=== PATIENT | female | born 1980 | race African-American/Black ===

== ENCOUNTER 2017-08-14 09:59 | Inpatient (IN) | payer OTHER ==
[2017-08-14 10:18] VITALS: BMI 23.9
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
[2017-08-14] MEDS ORDERED: IBUPROFEN 400 MG TABLET (FP) PO PRN (12:35)
[2017-08-14] MEDS ORDERED: chlordiazePOXIDE HCL 25 MG CAPSULE PO PRN (12:35)
[2017-08-14] MEDS ORDERED: MAGNESIUM HYDROX 2400MG/30ML ORAL SUSPENSION 30 ML CUP PO PRN (12:35)
[2017-08-14] MEDS ORDERED: MENTHOL/PHENOL 1 EACH UD MM PRN (12:35)
[2017-08-14] MEDS ORDERED: LOPERAMIDE HCL 2 MG CAPSULE PO PRN (12:35)
[2017-08-14] MEDS ORDERED: ACETAMINOPHEN 325 MG TABLET (FP) PO PRN (12:35)
[2017-08-14] MEDS ORDERED: guaiFENesin/D-METHORPHAN HB 10 ML UNIT-DOSE CUPS PO PRN (12:35)
[2017-08-14] MEDS ORDERED: MAGNESIUM CITRATE 300 ML BOTTLE PO PRN (12:35)
[2017-08-14] MEDS ORDERED: P-EPHED 60MG/TRIPROLIDI 2.5MG TABLET PO PRN (12:35)
[2017-08-14] MEDS ORDERED: MAG HYDROX/AL HYDROX/SIMETH 30 ML UNIT-DOSE CUP PO PRN (12:35)
[2017-08-14] MEDS ORDERED: hydrOXYzine PAMOATE 50 MG CAPSULE (FP) PO PRN (12:42)
[2017-08-14] MEDS ORDERED: chlordiazePOXIDE HCL 25 MG CAPSULE PO ONE (13:30)
[2017-08-14] MEDS: METHIMAZOLE 10 MG TABLET (FP) PO SCH ×2 (15:06→22:29)
--- NOTE | 2017-08-14 15:38 | CONSULT ---
[facility] Psychiatric Consult - Data Date of interview: 08/14/17 Admission source: [facility] Identifying data: This is 36 years old female with no psychiatric hospitalization history, intoxicatewd with: Alcohol, Cocaine anmd Nicotine Substance Abuse History: - Smoking Cessation. Smoking history: Current every day smoker. Have you smoked in the past 12 months: Yes. Aproximately how many cigarettes per day: 30. Hx Chewing Tobacco Use: No. Initiated information on smoking cessation: Yes. 'Breaking Loose' booklet given: 08/14/17. - Substance & Tx. History. Hx Alcohol Use: Yes. Hx Substance Use: Yes. Substance Use Type : Alcohol, Cocaine. Hx Substance Use Treatment: Yes (last detox at [address] [place] [address] pt signed out.). - Substances Abused. Alcohol. Route: Oral. Frequency: Daily. Amount used: 1 PINT VODKA AND GIN. Age of first use: 12. Date of Last Use: 08/14/17. Cocaine. Route: Inhalation. Frequency: Daily. Amount used : 2 BAGS. Age of first use: 19. Date of Last Use: 08/14/17 Medical History: HTN, HYPERTHYROIDISM HISTORY Psychiatric History: Patient reports history of anxiety and insonmnia, reports taking priopr to admission: Seroquel 100mg po qhs Physical/Sexual Abuse/Trauma History: Denies Additional Comment: Seroquel 100mg po qhs Mental Status Exam - Mental Status Exam Alert and Oriented to: Person Cognitive Function: Fair Patient Appearance: Unkempt Mood: Anxious Affect: Labile Patient Behavior: Impulsive Speech Pattern: Appropriate Voice Loudness: Mildly Loud Thought Process: Goal Oriented Thought Disorder: Being Controlled Hallucinations: Denies Suicidal Ideation: Denies Homicidal Ideation: Denies Insight/Judgement: Fair Sleep: Difficulty falling asleep Appetite: Fair Muscle strength/Tone: Mild Hypertonicity Gait/Station: Normal Additional Comments: Seroquel 100mg po qhs Psychiatric Findings - Problem List ([place] 1, 2,3) (1) Alcohol dependence with uncomplicated withdrawal Current Visit: Yes Status: Chronic (2) Cocaine dependence, uncomplicated Current Visit: Yes Status: Chronic (3) Drug-induced mood disorder Current Visit: No Status: Suspected - Initial Treatment Plan Initial Treatment Plan: Seroquel 100mg po qhs
[2017-08-14 17:20] LABS: URINE APPEARANCE CLEAR; URINE BILIRUBIN NEGATIVE (NEGATIVE); URINE BLOOD NEGATIVE (NEGATIVE); URINE COLOR STRAW; URINE GLUCOSE (UA) NEGATIVE (NEGATIVE); URINE KETONE NEGATIVE (NEGATIVE); URINE LEUK ESTERASE NEGATIVE (NEGATIVE); URINE NITRITE NEGATIVE (NEGATIVE); URINE PROTEIN NEGATIVE (NEGATIVE); URINE UROBILINOGEN NEGATIVE mg/dL (0.2-1.0)
[2017-08-14] MEDS: chlordiazePOXIDE HCL 25 MG CAPSULE PO SCH ×2 (17:39→22:29)
[2017-08-14] MEDS: QUEtiapine FUMARATE 100 MG TABLET (FP) PO SCH (22:29)
[2017-08-14] MEDS: THIAMINE HCL 100 MG TABLET (FP) PO SCH (22:29)
[2017-08-15] MEDS: chlordiazePOXIDE HCL 25 MG CAPSULE PO SCH ×4 (05:31→22:17)
[2017-08-15] MEDS: METHIMAZOLE 10 MG TABLET (FP) PO SCH ×3 (05:59→22:18)
[2017-08-15 10:21] LABS: CHLORIDE 103 mmol/L (98-107); POTASSIUM 3.6 mmol/L (3.5-5.1); SODIUM 139 mmol/L (136-145)
[2017-08-15 10:22] LABS: HEMOGLOBIN 10.4 GM/dL (10.7-15.3); MCH 22.1 pg (25.7-33.7); MCHC 30.6 g/dl (32.0-36.0); MEAN CELL VOLUME 72.3 fl (80-96); MEAN PLT VOLUME 8.7 fl (7.5-11.1); PLATELET COUNT 241 K/MM3 (134-434); RBC 4.71 M/mm3 (3.60-5.2); RDW 15.6 % (11.6-15.6); WHITE BLOOD COUNT 5.9 K/mm3 (4.0-10.0)
[2017-08-15 10:33] LABS: ALBUMIN 3.5 g/dl (3.4-5.0); ALK PHOS 211 U/L (45-117); ANION GAP 10 (8-16); BILIRUBIN,TOTAL 0.7 mg/dL (0.2-1.0); BLOOD UREA NITROGEN 9 mg/dL (7-18); CALCIUM 9.7 mg/dL (8.5-10.1); CO2 26 mmol/L (21-32); CREATININE 0.5 mg/dL (0.55-1.02); GLUCOSE,RANDOM 123 mg/dL (74-106); SGOT/AST 17 U/L (15-37); SGPT/ALT 27 U/L (12-78); TOT PROT 7.2 g/dl (6.4-8.2)
[2017-08-15] MEDS: NICOTINE 21 MG/24 HOURS TOPICAL PATCH TD SCH ×2 (11:04→11:07)
[2017-08-15] MEDS: PRENATAL VITAMINS W/ FOLIC ACID TABLET (FP) PO SCH (11:04)
--- NOTE | 2017-08-15 11:21 | PN ---
S CIWA - CIWA Score Nausea/Vomitin-Mild Nausea/No Vomiting Muscle Tremors: 4-Moderate,w/Arms Extend Anxiety: 3 Agitation: 3 Paroxysmal Sweats: 3 Orientation: 0-Oriented Tacttile Disturbances: 0-None Auditory Disturbances: 0-None Visual Disturbances: 0-None Headache: 1-Very Mild CIWA-Ar Total Score: 15 S Progress Note (SOAP) Subjective: agitation restless sweats interrupted sleep tired body aches Objective: 08/15/17 11:20 Vital Signs Temperature 97.7 F 08/15/17 10:00 Pulse Rate 126 H 08/15/17 10:00 Respiratory Rate 20 08/15/17 10:00 Blood Pressure 130/71 08/15/17 10:00 O2 Sat by Pulse Oximetry (%) Laboratory Tests 08/14/17 08/14/17 08/15/17 13:30 15:00 06:00 WBC 5.9 RBC 4.71 Hgb 10.4 L Hct 34.0 MCV 72.3 L MCH 22.1 L MCHC 30.6 L RDW 15.6 Plt Count 241 MPV 8.7 Sodium Potassium Chloride Carbon Dioxide Anion Gap BUN Creatinine Creat Clearance w eGFR Random Glucose Calcium Total Bilirubin AST ALT Alkaline Phosphatase Total Protein Albumin Urine Color Straw Urine Appearance Clear Urine pH 5.0 Ur Specific [place] 1.005 Urine Protein Negative Urine Glucose (UA) Negative Urine Ketones Negative Urine Blood Negative Urine Nitrite Negative Urine Bilirubin Negative Urine Urobilinogen Negative Ur Leukocyte Esterase Negative HIV 1&2 Antibody Screen Negative HIV P24 Antigen Negative 08/15/17 06:00 WBC RBC Hgb Hct MCV MCH MCHC RDW Plt Count MPV Sodium 139 Potassium 3.6 Chloride 103 Carbon Dioxide 26 Anion Gap 10 BUN 9 Creatinine 0.5 L Creat Clearance w eGFR > 60 Random Glucose 123 H D Calcium 9.7 Total Bilirubin 0.7 AST 17 D ALT 27 Alkaline Phosphatase 211 H Total Protein 7.2 Albumin 3.5 Urine Color Urine Appearance Urine pH Ur Specific [place] Urine Protein Urine Glucose (UA) Urine Ketones Urine Blood Urine Nitrite Urine Bilirubin Urine Urobilinogen Ur Leukocyte Esterase HIV 1&2 Antibody Screen HIV P24 Antigen aaox3 ambulating no acute distress Assessment: 08/15/17 11:21 withdrawal sx Plan: continue detox increase fluids
--- NOTE | 2017-08-15 15:19 | EKG ---
Test Reason : Blood Pressure : / mmHG Vent. Rate : 118 BPM Atrial Rate : 118 BPM P-R Int : 158 ms QRS Dur : 082 ms QT Int : 316 ms P-R-T Axes : 077 052 065 degrees QTc Int : 442 ms SINUS TACHYCARDIA POSSIBLE LEFT ATRIAL ENLARGEMENT LEFT VENTRICULAR HYPERTROPHY ABNORMAL ECG WHEN COMPARED WITH ECG OF 19-JUN-2017 14:51, NO SIGNIFICANT CHANGE WAS FOUND Confirmed by Ifeanyi Sam MD ([id number]) on 08/15/2017 3:19:13 PM Referred By: Confirmed By:Ifeanyi Sam MD
[2017-08-15] MEDS: THIAMINE HCL 100 MG TABLET (FP) PO SCH (22:17)
[2017-08-15] MEDS: QUEtiapine FUMARATE 100 MG TABLET (FP) PO SCH (22:18)
[2017-08-16] MEDS: METHIMAZOLE 10 MG TABLET (FP) PO SCH ×3 (05:55→22:31)
[2017-08-16] MEDS: chlordiazePOXIDE HCL 25 MG CAPSULE PO SCH ×2 (05:55→10:18)
[2017-08-16] MEDS: PRENATAL VITAMINS W/ FOLIC ACID TABLET (FP) PO SCH (10:18)
[2017-08-16] MEDS: NICOTINE 21 MG/24 HOURS TOPICAL PATCH TD SCH (10:18)
--- NOTE | 2017-08-16 10:59 | PN ---
[facility] CIWA - CIWA Score Nausea/Vomitin-Mild Nausea/No Vomiting Muscle Tremors: 3 Anxiety: 4-Mod. Anxious/Guarded Agitation: 3 Paroxysmal Sweats: 2 Orientation: 0-Oriented Tacttile Disturbances: 0-None Auditory Disturbances: 0-None Visual Disturbances: 0-None Headache: 0-None Present CIWA-Ar Total Score: 13 S Progress Note (SOAP) Subjective: anxious agitated problems sleeping sometimes Objective: 08/16/17 10:56 eating, no acute distress, mood guarded, tremulous Last Vital Signs Temp Pulse Resp BP Pulse Ox 98.2 F 96 20 132/74 08/16/17 10:00 08/16/17 10:00 08/16/17 10:00 08/16/17 10:00 Laboratory Last Values WBC 5.9 K/mm3 (4.0-10.0) 08/15/17 06:00 RBC 4.71 M/mm3 (3.60-5.2) 08/15/17 06:00 Hgb 10.4 GM/dL (10.7-15.3) L 08/15/17 06:00 Hct 34.0 % (32.4-45.2) 08/15/17 06:00 MCV 72.3 fl (80-96) L 08/15/17 06:00 MCH 22.1 pg (25.7-33.7) L 08/15/17 06:00 MCHC 30.6 g/dl (32.0-36.0) L 08/15/17 06:00 RDW 15.6 % (11.6-15.6) 08/15/17 06:00 Plt Count 241 K/MM3 (134-434) 08/15/17 06:00 MPV 8.7 fl (7.5-11.1) 08/15/17 06:00 Sodium 139 mmol/L (136-145) 08/15/17 06:00 Potassium 3.6 mmol/L (3.5-5.1) 08/15/17 06:00 Chloride 103 mmol/L (98-107) 08/15/17 06:00 Carbon Dioxide 26 mmol/L (21-32) 08/15/17 06:00 Anion Gap 10 (8-16) 08/15/17 06:00 BUN 9 mg/dL (7-18) 08/15/17 06:00 Creatinine 0.5 mg/dL (0.55-1.02) L 08/15/17 06:00 Creat Clearance w eGFR > 60 (>60) 08/15/17 06:00 Random Glucose 123 mg/dL (74-106) H D 08/15/17 06:00 Calcium 9.7 mg/dL (8.5-10.1) 08/15/17 06:00 Total Bilirubin 0.7 mg/dL (0.2-1.0) 08/15/17 06:00 AST 17 U/L (15-37) D 08/15/17 06:00 ALT 27 U/L (12-78) 08/15/17 06:00 Alkaline Phosphatase 211 U/L (45-117) H 08/15/17 06:00 Total Protein 7.2 g/dl (6.4-8.2) 08/15/17 06:00 Albumin 3.5 g/dl (3.4-5.0) 08/15/17 06:00 Urine Color Straw 08/14/17 15:00 Urine Appearance Clear 08/14/17 15:00 Urine pH 5.0 (5.0-8.0) 08/14/17 15:00 Ur Specific [place] 1.005 (1.001-1.035) 08/14/17 15:00 Urine Protein Negative (NEGATIVE) 08/14/17 15:00 Urine Glucose (UA) Negative (NEGATIVE) 08/14/17 15:00 Urine Ketones Negative (NEGATIVE) 08/14/17 15:00 Urine Blood Negative (NEGATIVE) 08/14/17 15:00 Urine Nitrite Negative (NEGATIVE) 08/14/17 15:00 Urine Bilirubin Negative (NEGATIVE) 08/14/17 15:00 Urine Urobilinogen Negative mg/dL (0.2-1.0) 08/14/17 15:00 Ur Leukocyte Esterase Negative (NEGATIVE) 08/14/17 15:00 RPR Titer Nonreactive (NONREACTIVE) 08/15/17 06:00 HIV 1&2 Antibody Screen Negative 08/14/17 13:30 HIV P24 Antigen Negative 08/14/17 13:30 labs noted Assessment: 08/16/17 10:59 withdrawal sx Plan: continue detox
[2017-08-16] MEDS: chlordiazePOXIDE 5 MG CAPSULE PO SCH ×2 (18:35→22:31)
[2017-08-16] MEDS: QUEtiapine FUMARATE 100 MG TABLET (FP) PO SCH (22:31)
[2017-08-16] MEDS: THIAMINE HCL 100 MG TABLET (FP) PO SCH (22:31)
[2017-08-17] MEDS: METHIMAZOLE 10 MG TABLET (FP) PO SCH ×3 (05:48→22:15)
[2017-08-17] MEDS: chlordiazePOXIDE 5 MG CAPSULE PO SCH ×2 (05:49→11:21)
--- NOTE | 2017-08-17 10:37 | PN ---
BHS Progress Note (SOAP) Subjective: agitation anxiety sweats Objective: 08/17/17 10:36 Vital Signs Temperature 97.7 F 08/17/17 10:16 Pulse Rate 113 H 08/17/17 10:16 Respiratory Rate 18 08/17/17 10:16 Blood Pressure 130/78 08/17/17 10:16 O2 Sat by Pulse Oximetry (%) aaox3 ambulating no acute distress Assessment: 08/17/17 10:37 withdrawal sx Plan: continue detox increase fluids d/c in am
[2017-08-17] MEDS: PRENATAL VITAMINS W/ FOLIC ACID TABLET (FP) PO SCH (11:22)
[2017-08-17] MEDS: NICOTINE 21 MG/24 HOURS TOPICAL PATCH TD SCH (11:23)
[2017-08-17] MEDS: chlordiazePOXIDE HCL 10 MG CAPSULE PO SCH ×2 (18:29→22:16)
[2017-08-17] MEDS: THIAMINE HCL 100 MG TABLET (FP) PO SCH (22:15)
[2017-08-17] MEDS: QUEtiapine FUMARATE 100 MG TABLET (FP) PO SCH (22:16)
[2017-08-18] MEDS: chlordiazePOXIDE HCL 10 MG CAPSULE PO SCH (05:57)
[2017-08-18] MEDS: METHIMAZOLE 10 MG TABLET (FP) PO SCH (05:57)
--- NOTE | 2017-08-18 09:15 | DS ---
[facility] Detox Discharge Summary Admission Date: 08/14/17 Discharge Date: 08/18/17 - History Present History: Alcohol Dependence, Cocaine Dependence Additional Comments: follow up with after care program as arrangement Pertinent Past History: hypertension hyperthyroidism - Physical Exam Results Vital Signs: Vital Signs Temperature 97.2 F L 08/18/17 06:00 Pulse Rate 113 H 08/18/17 06:00 Respiratory Rate 18 08/18/17 06:00 Blood Pressure 114/75 08/18/17 06:00 O2 Sat by Pulse Oximetry (%) Pertinent Admission Physical Exam Findings: withdrawal symptom and finding - Treatment Hospital Course: Detox Protocol Followed, Detoxed Safely, Responded well, Discharged Condition Good, Rehab Referral Accepted ([facility]) Patient has Accepted a Rehab Referral to: [facility] - Medication Discharge Medications: Ambulatory Orders Methimazole [Tapazole -] 10 mg PO Q8H 08/14/17 Quetiapine Fumarate [Seroquel] 100 mg PO HS #30 tablet 08/14/17 - Diagnosis (1) Alcohol dependence with uncomplicated withdrawal Current Visit: Yes Status: Chronic (2) Cocaine dependence, uncomplicated Current Visit: Yes Status: Chronic (3) Hypertension Current Visit: Yes Status: Chronic Qualifiers: Hypertension type: essential hypertension (4) Hyperthyroidism Current Visit: Yes Status: Chronic - AMA Did Patient Leave Against Medical Advice: No
[2017-08-18 10:44] VITALS: BP 130/81; PULSE 124; TEMP 97.9
[2017-08-18] MEDS: NICOTINE 21 MG/24 HOURS TOPICAL PATCH TD SCH (11:14)
[2017-08-18] MEDS: PRENATAL VITAMINS W/ FOLIC ACID TABLET (FP) PO SCH (11:15)
== END 2017-08-18 01:18 | disposition other institution (70) | DRG 774 ==
LOC: YASAS 09:59 → Y6N 12:35
PROVIDERS: ADMIT Internal Medicine; ATTEND Internal Medicine
PROC: HZ2ZZZZ Detoxification Services for Substance Abuse Treatment (ICD-10-PCS; principal; 2017-08-14)
DX: F10.230 Alcohol dependence with withdrawal, uncomplicated (principal); F14.20 Cocaine dependence, uncomplicated; F19.24 Other psychoactive substance dependence with psychoactive substance-induced mood disorder; F32.9 Major depressive disorder, single episode, unspecified; I10 Essential (primary) hypertension; E05.90 Thyrotoxicosis, unspecified without thyrotoxic crisis or storm; Z87.828 Personal history of other (healed) physical injury and trauma; Z59.0 Homelessness
CPT/HCPCS: 36415; 80053; 81003; 85027; 86593; 87389; 93005; 93010

== ENCOUNTER 2018-06-04 08:12 | Inpatient (IN) | payer OTHER ==
[2018-06-04 08:59] VITALS: BMI 24.2
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
[2018-06-04] MEDS ORDERED: guaiFENesin/D-METHORPHAN HB 10 ML UNIT-DOSE CUPS PO PRN (09:35)
[2018-06-04] MEDS ORDERED: hydrOXYzine PAMOATE 50 MG CAPSULE (FP) PO PRN (09:35)
[2018-06-04] MEDS ORDERED: MENTHOL/PHENOL 1 EACH UD MM PRN (09:35)
[2018-06-04] MEDS ORDERED: ACETAMINOPHEN 325 MG TABLET (FP) PO PRN (09:35)
[2018-06-04] MEDS ORDERED: LOPERAMIDE HCL 2 MG CAPSULE PO PRN (09:35)
[2018-06-04] MEDS ORDERED: IBUPROFEN 400 MG TABLET (FP) PO PRN (09:35)
[2018-06-04] MEDS ORDERED: P-EPHED 60MG/TRIPROLIDI 2.5MG TABLET PO PRN (09:35)
[2018-06-04] MEDS ORDERED: MAG HYDROX/AL HYDROX/SIMETH 30 ML UNIT-DOSE CUP PO PRN (09:35)
[2018-06-04] MEDS ORDERED: chlordiazePOXIDE HCL 25 MG CAPSULE PO PRN (09:35)
[2018-06-04] MEDS ORDERED: MAGNESIUM HYDROX 2400MG/30ML ORAL SUSPENSION 30 ML CUP PO PRN (09:35)
[2018-06-04] MEDS ORDERED: MAGNESIUM CITRATE 300 ML BOTTLE PO PRN (09:35)
[2018-06-04] MEDS ORDERED: LEVOTHYROXINE PO SCH (10:00)
[2018-06-04] MEDS: PRENATAL VITAMINS W/ FOLIC ACID TABLET (FP) PO SCH (11:37)
[2018-06-04] MEDS: chlordiazePOXIDE HCL 25 MG CAPSULE PO SCH ×3 (11:37→22:18)
--- NOTE | 2018-06-04 14:37 | CONSULT ---
[facility] Psychiatric Consult - Data Date of interview: 06/04/18 Admission source: [facility] Identifying data: This is a 37 years old female, single mother of two, living with family, unemployed, on PA support, with no psychiatric hospitalization history, with alcohol and cocaine dependence,seeking detox reporting withdrawal symptoms, last detox [facility] on 08/14/17 to 08/18/17, Substance Abuse History: Smoking history: Current every day smoker. Have you smoked in the past 12 months: Yes. Aproximately how many cigarettes per day: 20. Hx Chewing Tobacco Use: No. Initiated information on smoking cessation: Yes. 'Breaking Loose' booklet given: 06/04/18. - Substance & Tx. History. Hx Alcohol Use: Yes. Hx Substance Use: Yes. Substance Use Type: Alcohol, Cocaine. Hx Substance Use Treatment: Yes ([facility] 08/14/17 to 08/18/17). - Substances Abused. Alcohol. Route: Oral. Frequency: Daily. Amount used: 1 PINT [place], 7-8 12OZ CANS OF [place]ER. Age of first use: 14. Date of Last Use: 06/04/18. Cocaine. Route: Inhalation. Frequency: 1-2 times per week. Amount used: $10. Age of first use: 19. Date of Last Use: 05/31/18 Medical History: HTN, HISTORY OF HYPERTHYROIDITIS FOLLOWITH BY THYROIDOECTOMY, CURRENTLY ON SYNTROID DUE TO HYPOTHYROIDITIS, Psychiatric History: Patoent reports history of anxiety and depression, reports history of Bipolar disorder with no pasychiatric hospitalization hbistory. Patient asking for Seroquel 50mg po qhs for insomnia. Physical/Sexual Abuse/Trauma History: Denies Additional Comment: Seroquel 50mg po qhs Mental Status Exam - Mental Status Exam Alert and Oriented to: Person Cognitive Function: Fair Patient Appearance: Well Groomed Mood: Anxious Affect: Mood Congruent Patient Behavior: Cooperative Speech Pattern: Appropriate Voice Loudness: Moderately Soft/Quiet Thought Process: Goal Oriented Thought Disorder: Being Controlled Hallucinations: Denies Suicidal Ideation: Denies Homicidal Ideation: Denies Insight/Judgement: Fair Sleep: Difficulty falling asleep Appetite: Fair Muscle strength/Tone: Normal Gait/Station: Normal Additional Comments: Seroquel 50mg po qhs Psychiatric Findings - Problem List ([place]unday 1, 2,3) (1) Alcohol dependence with uncomplicated intoxication Current Visit: Yes Status: Acute (2) History of thyroidectomy Current Visit: Yes Status: Acute (3) Hypothyroidism Current Visit: Yes Status: Acute (4) Insomnia secondary to depression with anxiety Current Visit: Yes Status: Acute (5) Nicotine dependence Current Visit: Yes Status: Acute (6) Alcohol dependence with uncomplicated withdrawal Current Visit: No Status: Chronic (7) Cocaine dependence, uncomplicated Current Visit: No Status: Chronic (8) Ecstasy type drug dependence Current Visit: No Status: Chronic (9) Hypertension Current Visit: No Status: Chronic Qualifiers: Hypertension type: essential hypertension Qualified Code(s): I10 - Essential (primary) hypertension (10) Drug-induced mood disorder Current Visit: No Status: Suspected - Initial Treatment Plan Initial Treatment Plan: Seroquel 50 mg po qhs
[2018-06-04] MEDS: LEVOTHYROXINE PO SCH (15:04)
[2018-06-04 20:18] LABS: URINE APPEARANCE CLOUDY; URINE BILIRUBIN NEGATIVE (<2.0 mg/dL); URINE COLOR YELLOW; URINE GLUCOSE (UA) NEGATIVE (NEGATIVE); URINE KETONE NEGATIVE (NEGATIVE); URINE LEUK ESTERASE 1+ (NEGATIVE); URINE NITRITE NEGATIVE (NEGATIVE); URINE PROTEIN 1+ (NEGATIVE); URINE UROBILINOGEN NEGATIVE mg/dL (0.2-1.0)
[2018-06-04 20:47] LABS: EPI CELLS MODERATE /HPF (FEW); URINE MUCUS RARE
[2018-06-04] MEDS ORDERED: MELATONIN 5 MG TABLETS PO PRN (22:00)
[2018-06-04] MEDS: THIAMINE HCL 100 MG TABLET (FP) PO SCH (22:18)
[2018-06-04] MEDS: QUEtiapine FUMARATE 50 MG TABLET PO SCH (22:20)
[2018-06-05] MEDS: chlordiazePOXIDE HCL 25 MG CAPSULE PO SCH ×4 (05:52→22:03)
[2018-06-05] MEDS: LEVOTHYROXINE PO SCH (07:08)
[2018-06-05] MEDS: PRENATAL VITAMINS W/ FOLIC ACID TABLET (FP) PO SCH (10:13)
[2018-06-05 10:14] LABS: HEMOGLOBIN 11.5 GM/dL (10.7-15.3); MCH 27.1 pg (25.7-33.7); MCHC 31.9 g/dl (32.0-36.0); MEAN CELL VOLUME 84.9 fl (80-96); MEAN PLT VOLUME 7.6 fl (7.5-11.1); PLATELET COUNT 283 K/MM3 (134-434); RBC 4.24 M/mm3 (3.60-5.2); RDW 14.6 % (11.6-15.6); WHITE BLOOD COUNT 6.8 K/mm3 (4.0-10.0)
--- NOTE | 2018-06-05 10:31 | PN ---
S CIWA - CIWA Score Nausea/Vomitin-No Nausea/No Vomiting Muscle Tremors: 3 Anxiety: 3 Agitation: 3 Paroxysmal Sweats: 3 Orientation: 0-Oriented Tacttile Disturbances: 0-None Auditory Disturbances: 0-None Visual Disturbances: 0-None Headache: 0-None Present CIWA-Ar Total Score: 12 S Progress Note (SOAP) Subjective: shakes sweats interrupted sleep irritable body aches Objective: 06/05/18 10:26 Vital Signs Temperature 98.1 F 06/05/18 10:15 Pulse Rate 81 06/05/18 10:15 Respiratory Rate 16 06/05/18 10:15 Blood Pressure 113/84 06/05/18 10:15 O2 Sat by Pulse Oximetry (%) Laboratory Tests 06/04/18 06/05/18 19:30 05:45 WBC 6.8 RBC 4.24 Hgb 11.5 Hct 36.0 MCV 84.9 MCH 27.1 D MCHC 31.9 L RDW 14.6 Plt Count 283 MPV 7.6 D Urine Color Yellow Urine Appearance Cloudy Urine pH 6.0 Ur Specific [place] 1.010 Urine Protein 1+ H Urine Glucose (UA) Negative Urine Ketones Negative Urine Blood 3+ H Urine Nitrite Negative Urine Bilirubin Negative Urine Urobilinogen Negative Ur Leukocyte Esterase 1+ H Urine WBC (Auto) 5 Urine RBC (Auto) 1 Ur Epithelial Cells Moderate Urine Mucus Rare labs pending aaox3 ambulating no acute distress Assessment: 06/05/18 10:28 withdrawal sx Plan: continue detox increase fluids labs pending
[2018-06-05 10:43] LABS: ALBUMIN 4.2 g/dl (3.4-5.0); ALK PHOS 100 U/L (45-117); ANION GAP 11 MMOL/L (8-16); BILIRUBIN,TOTAL 0.3 mg/dL (0.2-1); BLOOD UREA NITROGEN 16 mg/dL (7-18); CALCIUM 8.7 mg/dL (8.5-10.1); CHLORIDE 103 mmol/L (98-107); CO2 26 mmol/L (21-32); CREATININE 0.9 mg/dL (0.55-1.3); GLUCOSE,RANDOM 79 mg/dL (74-106); POTASSIUM 3.8 mmol/L (3.5-5.1); SGOT/AST 43 U/L (15-37); SGPT/ALT 40 U/L (13-61); SODIUM 140 mmol/L (136-145); TOT PROT 8.1 g/dl (6.4-8.2)
[2018-06-05] MEDS ORDERED: FLU VACCINE QUAD 60 MCG/0.5 ML (MDV 18-19) IM ONE (12:00)
[2018-06-05] MEDS ORDERED: PNEUMOC 13-VAL CONJ-DIP CRM/PF 0.5 ML DISP.SYRIN IM ONE (12:00)
[2018-06-05] MEDS ORDERED: PNEUMOCOCCAL 23 VACCINE 0.5 ML VIAL IM ONE (12:00)
--- NOTE | 2018-06-05 16:09 | EKG ---
Test Reason : Blood Pressure : / mmHG Vent. Rate : 093 BPM Atrial Rate : 093 BPM P-R Int : 182 ms QRS Dur : 090 ms QT Int : 348 ms P-R-T Axes : 069 040 013 degrees QTc Int : 432 ms NORMAL SINUS RHYTHM POSSIBLE LEFT ATRIAL ENLARGEMENT BORDERLINE ECG WHEN COMPARED WITH ECG OF 14-AUG-2017 15:14, NONSPECIFIC T WAVE ABNORMALITY NOW EVIDENT IN INFERIOR LEADS INVERTED T WAVES HAVE REPLACED NONSPECIFIC T WAVE ABNORMALITY IN ANTERIOR LEADS Confirmed by MD ZARIA, LIZZIE ([id number]) on 06/05/2018 4:09:20 PM Referred By: Confirmed By:LIZZIE ENCISO MD
[2018-06-05] MEDS: QUEtiapine FUMARATE 50 MG TABLET PO SCH (22:03)
[2018-06-05] MEDS: THIAMINE HCL 100 MG TABLET (FP) PO SCH (22:03)
[2018-06-06] MEDS: LEVOTHYROXINE PO SCH (06:02)
[2018-06-06] MEDS: chlordiazePOXIDE HCL 25 MG CAPSULE PO SCH (06:02)
[2018-06-06] MEDS: NICOTINE 14 MG/24 HOURS TOPICAL PATCH TD SCH (10:38)
[2018-06-06] MEDS: PRENATAL VITAMINS W/ FOLIC ACID TABLET (FP) PO SCH (10:38)
[2018-06-06] MEDS: chlordiazePOXIDE 5 MG CAPSULE PO SCH ×3 (10:44→22:35)
--- NOTE | 2018-06-06 10:59 | PN ---
[facility] CIWA - CIWA Score Nausea/Vomitin-No Nausea/No Vomiting Muscle Tremors: 3 Anxiety: 2 Agitation: 3 Paroxysmal Sweats: 2 Orientation: 0-Oriented Tacttile Disturbances: 0-None Auditory Disturbances: 0-None Visual Disturbances: 0-None Headache: 0-None Present CIWA-Ar Total Score: 10 S Progress Note (SOAP) Subjective: sleepy sweats at night chills agitation Objective: 06/06/18 10:58 Vital Signs Temperature 98.4 F 06/06/18 09:37 Pulse Rate 95 H 06/06/18 09:37 Respiratory Rate 16 06/06/18 09:37 Blood Pressure 112/73 06/06/18 09:37 O2 Sat by Pulse Oximetry (%) Laboratory Tests 06/04/18 06/05/18 06/05/18 19:30 05:45 05:45 WBC 6.8 RBC 4.24 Hgb 11.5 Hct 36.0 MCV 84.9 MCH 27.1 D MCHC 31.9 L RDW 14.6 Plt Count 283 MPV 7.6 D Sodium 140 Potassium 3.8 Chloride 103 Carbon Dioxide 26 Anion Gap 11 BUN 16 Creatinine 0.9 Creat Clearance w eGFR > 60 Random Glucose 79 Calcium 8.7 Total Bilirubin 0.3 AST 43 H ALT 40 Alkaline Phosphatase 100 Total Protein 8.1 Albumin 4.2 Urine Color Yellow Urine Appearance Cloudy Urine pH 6.0 Ur Specific [place] 1.010 Urine Protein 1+ H Urine Glucose (UA) Negative Urine Ketones Negative Urine Blood 3+ H Urine Nitrite Negative Urine Bilirubin Negative Urine Urobilinogen Negative Ur Leukocyte Esterase 1+ H Urine WBC (Auto) 5 Urine RBC (Auto) 1 Ur Epithelial Cells Moderate Urine Mucus Rare RPR Titer 06/05/18 05:45 WBC RBC Hgb Hct MCV MCH MCHC RDW Plt Count MPV Sodium Potassium Chloride Carbon Dioxide Anion Gap BUN Creatinine Creat Clearance w eGFR Random Glucose Calcium Total Bilirubin AST ALT Alkaline Phosphatase Total Protein Albumin Urine Color Urine Appearance Urine pH Ur Specific [place] Urine Protein Urine Glucose (UA) Urine Ketones Urine Blood Urine Nitrite Urine Bilirubin Urine Urobilinogen Ur Leukocyte Esterase Urine WBC (Auto) Urine RBC (Auto) Ur Epithelial Cells Urine Mucus RPR Titer Nonreactive aaox3 ambulating no acute distress Assessment: 06/06/18 10:58 withdrawal sx Plan: continue detox increase fluids
[2018-06-06] MEDS: THIAMINE HCL 100 MG TABLET (FP) PO SCH (22:34)
[2018-06-06] MEDS: QUEtiapine FUMARATE 50 MG TABLET PO SCH (22:35)
[2018-06-06] MEDS: NICOTINE POLACRILEX 2 MG GUM BUC PRN (22:37)
[2018-06-07] MEDS: chlordiazePOXIDE 5 MG CAPSULE PO SCH (05:32)
[2018-06-07] MEDS: LEVOTHYROXINE PO SCH (07:44)
[2018-06-07] MEDS: chlordiazePOXIDE HCL 10 MG CAPSULE PO SCH ×3 (10:22→22:25)
[2018-06-07] MEDS: PRENATAL VITAMINS W/ FOLIC ACID TABLET (FP) PO SCH (10:23)
[2018-06-07] MEDS: NICOTINE 14 MG/24 HOURS TOPICAL PATCH TD SCH (10:23)
--- NOTE | 2018-06-07 11:21 | PN ---
[facility] Progress Note (SOAP) Subjective: irritable agitation interrupted sleep Objective: 06/07/18 11:21 Vital Signs Temperature 97.7 F 06/07/18 09:14 Pulse Rate 94 H 06/07/18 09:14 Respiratory Rate 17 06/07/18 09:14 Blood Pressure 109/74 06/07/18 09:14 O2 Sat by Pulse Oximetry (%) aaox3 ambulating no acute distress Assessment: 06/07/18 11:21 withdrawal sx Plan: continue detox increase fluids
[2018-06-07] MEDS: NICOTINE POLACRILEX 2 MG GUM BUC PRN (12:26)
[2018-06-07] MEDS: THIAMINE HCL 100 MG TABLET (FP) PO SCH (22:25)
[2018-06-07] MEDS: QUEtiapine FUMARATE 50 MG TABLET PO SCH (22:25)
[2018-06-08] MEDS: chlordiazePOXIDE HCL 10 MG CAPSULE PO SCH (05:30)
[2018-06-08 06:18] VITALS: BP 102/62; PULSE 80; TEMP 97.5
[2018-06-08] MEDS: LEVOTHYROXINE PO SCH (07:48)
--- NOTE | 2018-06-08 08:55 | DS ---
[facility] Detox Discharge Summary Admission Date: 06/04/18 Discharge Date: 06/08/18 - History Present History: Alcohol Dependence, Cocaine Dependence - Physical Exam Results Vital Signs: Vital Signs Temperature 97.5 F L 06/08/18 06:17 Pulse Rate 80 06/08/18 06:17 Respiratory Rate 16 06/08/18 06:17 Blood Pressure 102/62 06/08/18 06:17 O2 Sat by Pulse Oximetry (%) - Treatment Hospital Course: Detox Protocol Followed, Detoxed Safely, Responded well, Discharged Condition Good, Rehab Referral Accepted - Medication Discharge Medications: Ambulatory Orders Calcium Carb/Magnesium Hydrox [Antacid 1000-200 mg Tab Chew] 1 each PO DAILY Levothyroxine [Synthroid -] 100 mcg PO DAILY 06/04/18 Quetiapine Fumarate [Seroquel -] 50 mg PO HS #30 tablet 06/04/18 - Diagnosis (1) Alcohol dependence with uncomplicated intoxication Current Visit: Yes Status: Chronic (2) History of hypertension Current Visit: Yes Status: Chronic (3) History of hyperthyroidism Current Visit: Yes Status: Chronic (4) History of thyroidectomy Current Visit: Yes Status: Chronic (5) Hypothyroidism Current Visit: Yes Status: Acute Qualifiers: Hypothyroidism type: acquired Qualified Code(s): E03.9 - Hypothyroidism, unspecified (6) Insomnia secondary to depression with anxiety Current Visit: Yes Status: Acute (7) Nicotine dependence Current Visit: Yes Status: Chronic Qualifiers: Nicotine product type: cigarettes Substance use status: uncomplicated Qualified Code(s): F17.210 - Nicotine dependence, cigarettes, uncomplicated (8) Alcohol dependence with uncomplicated withdrawal Current Visit: Yes Status: Chronic (9) Cocaine dependence, uncomplicated Current Visit: Yes Status: Chronic (10) Ecstasy type drug dependence Current Visit: No Status: Chronic (11) Hypertension Current Visit: No Status: Chronic Qualifiers: Hypertension type: essential hypertension Qualified Code(s): I10 - Essential (primary) hypertension (12) Drug-induced mood disorder Current Visit: No Status: Suspected - AMA Did Patient Leave Against Medical Advice: No
== END 2018-06-08 09:23 | disposition home or self-care (01) | DRG 774 ==
LOC: YASAS 08:12 → Y6N 09:31
PROC: HZ2ZZZZ Detoxification Services for Substance Abuse Treatment (ICD-10-PCS; principal; 2018-06-04)
DX: F10.230 Alcohol dependence with withdrawal, uncomplicated (principal); F14.20 Cocaine dependence, uncomplicated; F15.20 Other stimulant dependence, uncomplicated; F19.24 Other psychoactive substance dependence with psychoactive substance-induced mood disorder; F51.05 Insomnia due to other mental disorder; F32.9 Major depressive disorder, single episode, unspecified; F41.9 Anxiety disorder, unspecified; I10 Essential (primary) hypertension; E05.90 Thyrotoxicosis, unspecified without thyrotoxic crisis or storm; E89.0 Postprocedural hypothyroidism; Z59.0 Homelessness
CPT/HCPCS: 36415; 80053; 81003; 81015; 85027; 86593; 87389; 90688; 90732; 93005; 93010; G0008; G0009

== ENCOUNTER 2020-08-21 10:27 | Inpatient (IN) | payer OTHER ==
[2020-08-21 11:50] VITALS: BMI 30.7
[2020-08-21] MEDS ORDERED: MENTHOL/PHENOL 1 EACH UD MM PRN (14:29)
[2020-08-21] MEDS ORDERED: IBUPROFEN 400 MG TABLET (FP) PO PRN (14:29)
[2020-08-21] MEDS ORDERED: NICOTINE POLACRILEX 2 MG GUM BUC PRN (14:29)
[2020-08-21] MEDS ORDERED: MAGNESIUM HYDROX 2400MG/30ML ORAL SUSPENSION 30 ML CUP PO PRN (14:29)
[2020-08-21] MEDS ORDERED: chlordiazePOXIDE HCL 25 MG CAPSULE PO PRN (14:29)
[2020-08-21] MEDS ORDERED: MAG HYDROX/AL HYDROX/SIMETH 30 ML UNIT-DOSE CUP PO PRN (14:29)
[2020-08-21] MEDS ORDERED: METHOCARBAMOL 500 MG TABLET PO PRN (14:29)
[2020-08-21] MEDS ORDERED: BISMUTH SUBSALICYLATE 262 MG/15 ML BTL PO PRN (14:29)
[2020-08-21] MEDS ORDERED: ONDANSETRON *ODT* 4 MG TABLET SL PRN (14:29)
[2020-08-21] MEDS ORDERED: ACETAMINOPHEN 325 MG TABLET (FP) PO PRN ×2 (14:29)
[2020-08-21] MEDS ORDERED: MAGNESIUM CITRATE 300 ML BOTTLE PO PRN (14:29)
[2020-08-21] MEDS ORDERED: LEVOTHYROXINE NA 100 MCG TABLET (FP) PO SCH (14:30)
[2020-08-21] MEDS: PRENATAL VITAMINS W/ FOLIC ACID TABLET (FP) PO SCH (16:07)
[2020-08-21] MEDS: NICOTINE 7 MG/24 HOURS TOPICAL PATCH TD SCH (16:12)
[2020-08-21] MEDS: LEVOTHYROXINE 112 MCG, LEVOTHYROXINE 25 MCG PO SCH (16:18)
[2020-08-21 17:24] LABS: POTASSIUM 3.7 mmol/L (3.5-5.1)
[2020-08-21] MEDS: chlordiazePOXIDE HCL 25 MG CAPSULE PO SCH ×2 (17:24→22:14)
[2020-08-21 17:25] LABS: HEMATOCRIT 29.9 % (32.4-45.2); HEMOGLOBIN 9.6 GM/dL (10.7-15.3); MCH 28.6 pg (25.7-33.7); MCHC 32.3 g/dl (32.0-36.0); MEAN CELL VOLUME 88.5 fl (80-96); MEAN PLT VOLUME 8.3 fl (7.5-11.1); PLATELET COUNT 284 K/MM3 (134-434); RBC 3.38 M/mm3 (3.60-5.2); RDW 20.3 % (11.6-15.6); WHITE BLOOD COUNT 9.8 K/mm3 (4.0-10.0)
[2020-08-21] MEDS: hydrOXYzine PAMOATE 25 MG CAPSULE (FP) PO SCH ×2 (17:25→22:14)
[2020-08-21 17:33] LABS: BLOOD UREA NITROGEN 16.7 mg/dL (7-18); CALCIUM 9.6 mg/dL (8.5-10.1)
[2020-08-21 17:38] LABS: BILIRUBIN,TOTAL 1.3 mg/dL (0.2-1); TOT PROT 8.3 g/dl (6.4-8.2)
[2020-08-21 18:22] LABS: HIV INTERPRETATION NEGATIVE (NEGATIVE)
[2020-08-21] MEDS: THIAMINE HCL 100 MG TABLET (FP) PO SCH (22:12)
[2020-08-21] MEDS: MELATONIN 5 MG TABLETS PO SCH (22:13)
[2020-08-22] MEDS: chlordiazePOXIDE HCL 25 MG CAPSULE PO SCH ×4 (05:54→22:37)
[2020-08-22] MEDS: hydrOXYzine PAMOATE 25 MG CAPSULE (FP) PO SCH ×5 (05:55→22:39)
[2020-08-22] MEDS: LEVOTHYROXINE 112 MCG, LEVOTHYROXINE 25 MCG PO SCH (06:54)
[2020-08-22] MEDS: PRENATAL VITAMINS W/ FOLIC ACID TABLET (FP) PO SCH (10:26)
[2020-08-22] MEDS: NICOTINE 7 MG/24 HOURS TOPICAL PATCH TD SCH (10:33)
[2020-08-22] MEDS: THIAMINE HCL 100 MG TABLET (FP) PO SCH (22:38)
[2020-08-22] MEDS: MELATONIN 5 MG TABLETS PO SCH (22:38)
[2020-08-23] MEDS: LEVOTHYROXINE 112 MCG, LEVOTHYROXINE 25 MCG PO SCH (06:25)
[2020-08-23] MEDS: chlordiazePOXIDE HCL 25 MG CAPSULE PO SCH ×4 (06:26→22:27)
[2020-08-23] MEDS: hydrOXYzine PAMOATE 25 MG CAPSULE (FP) PO SCH ×5 (06:27→22:28)
[2020-08-23] MEDS: NICOTINE 7 MG/24 HOURS TOPICAL PATCH TD SCH (10:12)
[2020-08-23] MEDS: PRENATAL VITAMINS W/ FOLIC ACID TABLET (FP) PO SCH (10:12)
[2020-08-23] MEDS: MELATONIN 5 MG TABLETS PO SCH (22:28)
[2020-08-23] MEDS: THIAMINE HCL 100 MG TABLET (FP) PO SCH (22:28)
[2020-08-24] MEDS ORDERED: chlordiazePOXIDE HCL 10 MG CAPSULE PO PRN
[2020-08-24] MEDS: hydrOXYzine PAMOATE 25 MG CAPSULE (FP) PO SCH (06:03)
[2020-08-24] MEDS: chlordiazePOXIDE HCL 10 MG CAPSULE PO SCH ×4 (06:03→22:17)
[2020-08-24] MEDS: LEVOTHYROXINE 112 MCG, LEVOTHYROXINE 25 MCG PO SCH (06:05)
[2020-08-24] MEDS ORDERED: hydrOXYzine PAMOATE 25 MG CAPSULE (FP) PO PRN (08:29)
[2020-08-24] MEDS: NICOTINE 7 MG/24 HOURS TOPICAL PATCH TD SCH (10:47)
[2020-08-24] MEDS: PRENATAL VITAMINS W/ FOLIC ACID TABLET (FP) PO SCH (10:47)
[2020-08-24 12:18] LABS: ALBUMIN 3.4 g/dl (3.4-5.0)
[2020-08-24 12:21] LABS: BILIRUBIN,DIRECT 0.3 mg/dL (0.0-0.2)
[2020-08-24 12:23] LABS: BILIRUBIN,TOTAL 0.8 mg/dL (0.2-1); TOT PROT 7.4 g/dl (6.4-8.2)
[2020-08-24] MEDS: FERROUS SO4 325 MG TABLET (FP) PO SCH ×2 (12:37→17:14)
[2020-08-24] MEDS: THIAMINE HCL 100 MG TABLET (FP) PO SCH (22:17)
[2020-08-24] MEDS: MELATONIN 5 MG TABLETS PO SCH (22:17)
[2020-08-25] MEDS ORDERED: chlordiazePOXIDE HCL 10 MG CAPSULE PO SCH (05:00)
[2020-08-25] MEDS: LEVOTHYROXINE 112 MCG, LEVOTHYROXINE 25 MCG PO SCH (06:23)
[2020-08-25] MEDS: PRENATAL VITAMINS W/ FOLIC ACID TABLET (FP) PO SCH (09:16)
[2020-08-25] MEDS: FERROUS SO4 325 MG TABLET (FP) PO SCH ×2 (09:16→12:00)
[2020-08-25] MEDS: NICOTINE 7 MG/24 HOURS TOPICAL PATCH TD SCH (09:19)
[2020-08-25 13:25] VITALS: BP 128/86; PULSE 94; TEMP 97.1
[2020-08-26] MEDS ORDERED: chlordiazePOXIDE HCL 10 MG CAPSULE PO ONE (05:00)
== END 2020-08-25 16:02 | disposition home or self-care (01) | DRG 774 ==
LOC: YASAS 10:27 → Y3N 12:24
PROVIDERS: ADMIT Allergy & Immunology; ATTEND Allergy & Immunology
PROC: HZ2ZZZZ Detoxification Services for Substance Abuse Treatment (ICD-10-PCS; principal; 2020-08-21)
DX: F10.230 Alcohol dependence with withdrawal, uncomplicated (principal); F14.20 Cocaine dependence, uncomplicated; F17.210 Nicotine dependence, cigarettes, uncomplicated; D64.9 Anemia, unspecified; E89.0 Postprocedural hypothyroidism; L30.9 Dermatitis, unspecified; R94.5 Abnormal results of liver function studies; R74.01 Elevation of levels of liver transaminase levels; R74.8 Abnormal levels of other serum enzymes
CPT/HCPCS: 36415; 80053; 80076; 81025; 82607; 82728; 82746; 83540; 83550; 85027; 86780; 87389; C9803; U0003

== ENCOUNTER 2020-10-22 10:09 | Inpatient (IN) | payer OTHER ==
[2020-10-22 12:41] VITALS: BMI 30.7
[2020-10-22] MEDS ORDERED: IBUPROFEN 400 MG TABLET (FP) PO PRN (13:19)
[2020-10-22] MEDS ORDERED: MENTHOL/PHENOL 1 EACH UD MM PRN (13:19)
[2020-10-22] MEDS ORDERED: NICOTINE POLACRILEX 2 MG GUM BUC PRN (13:19)
[2020-10-22] MEDS ORDERED: BISMUTH SUBSALICYLATE 262 MG/15 ML BTL PO PRN (13:19)
[2020-10-22] MEDS ORDERED: METHOCARBAMOL 500 MG TABLET PO PRN (13:19)
[2020-10-22] MEDS ORDERED: MAG HYDROX/AL HYDROX/SIMETH 30 ML UNIT-DOSE CUP PO PRN (13:19)
[2020-10-22] MEDS ORDERED: ACETAMINOPHEN 325 MG TABLET (FP) PO PRN ×2 (13:19)
[2020-10-22] MEDS ORDERED: MAGNESIUM CITRATE 300 ML BOTTLE PO PRN (13:19)
[2020-10-22] MEDS ORDERED: MAGNESIUM HYDROX 2400MG/30ML ORAL SUSPENSION 30 ML CUP PO PRN (13:19)
[2020-10-22] MEDS ORDERED: ONDANSETRON *ODT* 4 MG TABLET SL PRN (13:19)
[2020-10-22] MEDS: PRENATAL VITAMINS W/ FOLIC ACID TABLET (FP) PO SCH (14:53)
[2020-10-22] MEDS: hydrOXYzine PAMOATE 25 MG CAPSULE (FP) PO SCH ×3 (14:53→21:46)
[2020-10-22] MEDS ORDERED: THIAMINE HCL 100 MG TABLET (FP) PO SCH (22:00)
[2020-10-22] MEDS ORDERED: MELATONIN 5 MG TABLETS PO SCH (22:00)
[2020-10-23] MEDS: hydrOXYzine PAMOATE 25 MG CAPSULE (FP) PO SCH ×3 (06:00→13:25)
[2020-10-23] MEDS ORDERED: LEVOTHYROXINE NA 112 MCG TABLET (FP) PO SCH (07:00)
[2020-10-23] MEDS ORDERED: LEVOTHYROXINE 112 MCG, LEVOTHYROXINE 25 MCG PO SCH (07:00)
[2020-10-23] MEDS: PRENATAL VITAMINS W/ FOLIC ACID TABLET (FP) PO SCH (10:43)
[2020-10-23 12:00] LABS: HEMATOCRIT 30.6 % (32.4-45.2); MCH 28.3 pg (25.7-33.7); MCHC 32.5 g/dl (32.0-36.0); PLATELET COUNT 223 K/MM3 (134-434); RBC 3.52 M/mm3 (3.60-5.2); RDW 19.2 % (11.6-15.6); WHITE BLOOD COUNT 7.1 K/mm3 (4.0-10.0)
[2020-10-23 12:25] LABS: POTASSIUM 3.3 mmol/L (3.5-5.1)
[2020-10-23 12:35] LABS: CALCIUM 8.9 mg/dL (8.5-10.1)
[2020-10-23 12:36] LABS: BLOOD UREA NITROGEN 10.8 mg/dL (7-18)
[2020-10-23 12:38] LABS: ALBUMIN 3.4 g/dl (3.4-5.0)
[2020-10-23 12:40] LABS: TOT PROT 7.8 g/dl (6.4-8.2)
[2020-10-23 13:18] LABS: HIV INTERPRETATION NEGATIVE (NEGATIVE)
[2020-10-23 15:25] VITALS: BP 103/80; PULSE 88; TEMP 97.6
== END 2020-10-23 17:55 | disposition other institution (70) | DRG 774 ==
LOC: YASAS 10:09 → Y6N 13:44
PROVIDERS: ADMIT Allergy & Immunology; ATTEND Allergy & Immunology
PROC: HZ2ZZZZ Detoxification Services for Substance Abuse Treatment (ICD-10-PCS; principal; 2020-10-22)
DX: F10.20 Alcohol dependence, uncomplicated (principal); F14.20 Cocaine dependence, uncomplicated; F17.210 Nicotine dependence, cigarettes, uncomplicated; E89.0 Postprocedural hypothyroidism; L30.9 Dermatitis, unspecified
CPT/HCPCS: 36415; 80053; 81025; 85027; 86780; 87389; C9803; U0003

== ENCOUNTER 2023-04-07 08:36 | Inpatient (IN) | payer OTHER ==
[2023-04-07 10:31] VITALS: BMI 34.5
[2023-04-07] MEDS ORDERED: P-EPHED 60MG/TRIPROLIDI 2.5MG TABLET PO PRN (10:57)
[2023-04-07] MEDS ORDERED: LOPERAMIDE HCL 2 MG CAPSULE PO PRN (10:57)
[2023-04-07] MEDS ORDERED: BENZONATATE 200 MG CAPSULE PO PRN (10:57)
[2023-04-07] MEDS ORDERED: hydrOXYzine PAMOATE 25 MG CAPSULE (FP) PO PRN (10:57)
[2023-04-07] MEDS ORDERED: IBUPROFEN 600 MG TABLET (FP) PO PRN (10:57)
[2023-04-07] MEDS ORDERED: BISMUTH SUBSALICYLATE 524 MG/30 ML PO PRN (10:57)
[2023-04-07] MEDS ORDERED: ACETAMINOPHEN 325 MG TABLET (FP) PO PRN (10:57)
[2023-04-07] MEDS ORDERED: DICYCLOMINE HCL 10 MG CAPSULE PO PRN (10:57)
[2023-04-07] MEDS ORDERED: guaiFENesin 600 MG TABLET.ER (FP) PO PRN (10:57)
[2023-04-07] MEDS ORDERED: IBUPROFEN 400 MG TABLET (FP) PO PRN (10:57)
[2023-04-07] MEDS ORDERED: METHOCARBAMOL 500 MG TABLET PO PRN (10:57)
[2023-04-07] MEDS ORDERED: POLYETHYLENE GLYCOL (HEALTHYLAX) 3350 17 GM PACKET PO PRN (10:57)
[2023-04-07] MEDS ORDERED: MAG HYDROX/AL HYDROX/SIMETH 30 ML UNIT-DOSE CUP PO PRN (10:57)
[2023-04-07] MEDS ORDERED: MAGNESIUM HYDROX 2400MG/30ML ORAL SUSPENSION 30 ML CUP PO PRN (10:57)
[2023-04-07] MEDS ORDERED: BENZOCAINE/MENTHOL (CHLORASEPTIC ) LOZENGE MM PRN (10:57)
[2023-04-07] MEDS ORDERED: ONDANSETRON *ODT* 4 MG TABLET SL PRN (10:57)
[2023-04-07] MEDS ORDERED: diazePAM 5 MG TABLET PO PRN (10:59)
[2023-04-07] MEDS ORDERED: diazePAM 5 MG TABLET ONE (11:55)
[2023-04-07] MEDS: diazePAM 5 MG TABLET PO SCH ×3 (12:00→22:13)
[2023-04-07] MEDS ORDERED: LEVOTHYROXINE 112 MCG, LEVOTHYROXINE 25 MCG PO ONE (13:15)
[2023-04-07] MEDS: HYDROCHLOROTHIAZIDE 12.5 MG CAPSULE (FP) PO SCH (15:33)
[2023-04-07] MEDS: amLODIPine BESYLATE 5 MG TABLET (FP) PO SCH (15:33)
[2023-04-07] MEDS: NICOTINE POLACRILEX 2 MG GUM BUC PRN (19:02)
[2023-04-07] MEDS: MELATONIN 5 MG TABLETS PO SCH (22:13)
[2023-04-07] MEDS: THIAMINE HCL 100 MG TABLET (FP) PO SCH (22:13)
[2023-04-08] MEDS: diazePAM 5 MG TABLET PO SCH ×4 (05:46→22:27)
[2023-04-08] MEDS: LEVOTHYROXINE 112 MCG, LEVOTHYROXINE 25 MCG PO SCH (06:14)
[2023-04-08] MEDS ORDERED: LEVOTHYROXINE NA 112 MCG TABLET (FP) PO SCH (07:00)
[2023-04-08] MEDS: HYDROCHLOROTHIAZIDE 12.5 MG CAPSULE (FP) PO SCH (10:23)
[2023-04-08] MEDS: PRENATAL VITAMINS W/ FOLIC ACID TABLET (FP) PO SCH (10:23)
[2023-04-08] MEDS: amLODIPine BESYLATE 5 MG TABLET (FP) PO SCH (10:24)
[2023-04-08 10:36] LABS: POTASSIUM 3.3 mmol/L (3.5-5.1)
[2023-04-08 10:43] LABS: ALBUMIN 4.2 g/dl (3.4-5.0); BLOOD UREA NITROGEN 11.4 mg/dL (7-18)
[2023-04-08 10:46] LABS: CREATININE 1.3 mg/dL (0.55-1.3)
[2023-04-08 10:47] LABS: TOT PROT 8.2 g/dl (6.4-8.2)
[2023-04-08 10:48] LABS: BILIRUBIN,TOTAL 2.1 mg/dL (0.2-1)
[2023-04-08 10:51] LABS: HEMATOCRIT 39.2 % (32.4-45.2); HEMOGLOBIN 13.5 GM/dL (10.7-15.3); MCH 31.4 pg (25.7-33.7); MCHC 34.4 g/dl (32.0-36.0); MEAN CELL VOLUME 91.2 fl (80-96); MEAN PLT VOLUME 7.3 fl (7.5-11.1); PLATELET COUNT 204 10^3/uL (134-434); RBC 4.31 M/mm3 (3.60-5.2); RDW 18.4 % (11.6-15.6); WHITE BLOOD COUNT 6.4 K/mm3 (4.0-10.0)
[2023-04-08] MEDS ORDERED: POTASSIUM CHLORIDE ORAL LIQUID 20 MEQ/15 ML PO ONE (11:30)
[2023-04-08 12:28] LABS: HIV INTERPRETATION NEGATIVE (NEGATIVE)
[2023-04-08] MEDS: MELATONIN 5 MG TABLETS PO SCH (22:26)
[2023-04-08] MEDS: THIAMINE HCL 100 MG TABLET (FP) PO SCH (22:26)
[2023-04-08] MEDS: NICOTINE POLACRILEX 2 MG GUM BUC PRN (22:29)
[2023-04-09] MEDS: diazePAM 5 MG TABLET PO SCH ×3 (05:47→22:15)
[2023-04-09] MEDS: LEVOTHYROXINE 112 MCG, LEVOTHYROXINE 25 MCG PO SCH (06:12)
[2023-04-09] MEDS: amLODIPine BESYLATE 5 MG TABLET (FP) PO SCH (10:05)
[2023-04-09] MEDS: HYDROCHLOROTHIAZIDE 12.5 MG CAPSULE (FP) PO SCH (10:05)
[2023-04-09] MEDS: PRENATAL VITAMINS W/ FOLIC ACID TABLET (FP) PO SCH (10:05)
[2023-04-09] MEDS: MELATONIN 5 MG TABLETS PO SCH (22:13)
[2023-04-09] MEDS: THIAMINE HCL 100 MG TABLET (FP) PO SCH (22:13)
[2023-04-10] MEDS: diazePAM 5 MG TABLET PO SCH ×2 (05:32→17:11)
[2023-04-10] MEDS: LEVOTHYROXINE 112 MCG, LEVOTHYROXINE 25 MCG PO SCH (06:09)
[2023-04-10] MEDS: amLODIPine BESYLATE 5 MG TABLET (FP) PO SCH (09:36)
[2023-04-10] MEDS: HYDROCHLOROTHIAZIDE 12.5 MG CAPSULE (FP) PO SCH (09:36)
[2023-04-10] MEDS: PRENATAL VITAMINS W/ FOLIC ACID TABLET (FP) PO SCH (09:36)
[2023-04-10] MEDS: POTASSIUM CHLORIDE ORAL LIQUID 20 MEQ/15 ML PO SCH ×2 (10:22→22:18)
[2023-04-10] MEDS: MELATONIN 5 MG TABLETS PO SCH (22:18)
[2023-04-10] MEDS: THIAMINE HCL 100 MG TABLET (FP) PO SCH (22:18)
[2023-04-11] MEDS ORDERED: diazePAM 5 MG TABLET PO ONE (06:00)
[2023-04-11] MEDS: LEVOTHYROXINE 112 MCG, LEVOTHYROXINE 25 MCG PO SCH (06:31)
[2023-04-11] MEDS: HYDROCHLOROTHIAZIDE 12.5 MG CAPSULE (FP) PO SCH (09:19)
[2023-04-11] MEDS: amLODIPine BESYLATE 5 MG TABLET (FP) PO SCH (09:20)
[2023-04-11] MEDS: PRENATAL VITAMINS W/ FOLIC ACID TABLET (FP) PO SCH (09:20)
[2023-04-11] MEDS: POTASSIUM CHLORIDE ORAL LIQUID 20 MEQ/15 ML PO SCH (09:20)
[2023-04-11 09:40] VITALS: BP 136/97; PULSE 112; RESP 20; TEMP 97.7
[2023-04-11 10:28] LABS: POTASSIUM 4.2 mmol/L (3.5-5.1)
[2023-04-11 10:32] LABS: CALCIUM 9.7 mg/dL (8.5-10.1)
[2023-04-11 10:33] LABS: BLOOD UREA NITROGEN 17.5 mg/dL (7-18)
[2023-04-11 10:36] LABS: CREATININE 1.1 mg/dL (0.55-1.3)
== END 2023-04-11 10:32 | disposition home or self-care (01) | DRG 774 ==
LOC: YASAS 08:36 → Y3N 12:06
PROVIDERS: ADMIT Allergy & Immunology; ATTEND Surgery
PROC: HZ2ZZZZ Detoxification Services for Substance Abuse Treatment (ICD-10-PCS; principal; 2023-04-07)
DX: F10.230 Alcohol dependence with withdrawal, uncomplicated (principal); F14.20 Cocaine dependence, uncomplicated; F17.210 Nicotine dependence, cigarettes, uncomplicated; E87.6 Hypokalemia; E03.9 Hypothyroidism, unspecified; I10 Essential (primary) hypertension
CPT/HCPCS: 36415; 80048; 80053; 81025; 84132; 85027; 86780; 87389; 87635; 87811